=== PATIENT | male | born 1965 | race Caucasian/White ===

== ENCOUNTER → 2020-09-05 17:55 | Outpatient (CLI) | payer BC, SELFPAY ==
[2020-09-05 18:28] LABS: Basophils # 0.1 K/mm3 (0-0.2); Basophils % 0.7 % (0.1-2.0); Eosinophils # 0.3 K/mm3 (0.0-0.4); Eosinophils % 2.9 % (0.1-12.0); Hematocrit 49.4 % (42.0-52.0); Hemoglobin 16.4 g/dL (14.1-18.0); Lymphocytes # 4.4 K/mm3 (0.7-4.5); Lymphocytes % 37.1 % (10-50); Mean Corpuscular HGB Conc 33.2 g/dL (31.8-35.4); Mean Corpuscular Hemoglobin 31.4 pg (27.0-31.2); Mean Corpuscular Volume 94.6 fl (80-94); Mean Platelet Volume 8.4 fl (7.4-10.4); Monocytes # 0.6 K/mm3 (0.1-1.0); Monocytes % 5.4 % (1.7-9.3); Neutrophils # 6.4 K/mm3 (1.8-7.8); Neutrophils % 53.8 % (37.0-80.0); Platelet Count 300 K/mm3 (142-424); Red Blood Count 5.22 M/mm3 (4.60-6.20); Red Cell Distribution Width 13.7 % (11.5-17.5); White Blood Count 11.8 K/mm3 (4.8-10.8)
[2020-09-05 18:46] LABS: Alanine Aminotransferase 7 U/L (12-78); Albumin Level 4.7 g/dl (3.5-5.0); Albumin/Globulin Ratio 1.6 (1.1-1.8); Alkaline Phosphatase 99 U/L (38-126); Anion Gap 13.4 mEq/L (5-15); Aspartate Amino Transferase 34 U/L (17-59); Bilirubin,Total 0.4 mg/dl (0.2-1.3); Blood Urea Nitrogen 18 mg/dl (9-20); Calcium 10.1 mg/dl (8.4-10.2); Carbon Dioxide 31 mmol/L (22.0-30.0); Chloride 103 mmol/L (98-107); Chol/HDL Ratio 6.5 (1-3.5); Cholesterol 213 mg/dl (140-200); Estimated Glomerular Filt Rate 63 ml/min (>60); GFR (African American) 77 ML/MIN (>60); Glucose 92 mg/dl (74-100); HDL Cholesterol 33 mg/dl (40-60); Potassium 4.4 mmoL/L (3.5-5.1); Sodium 143 mmol/L (136-145); Total Protein,Serum 7.7 g/dl (6.3-8.2); Triglycerides 270 mg/dl (30-150); VLDL Cholesterol 54 mg/dL (0-40)
[2020-09-05 18:53] LABS: Coronavirus 19 IgG Antibody Negative (Negative); Coronavirus 19 IgM Antibody Negative (Negative)
[2020-09-05 18:56] LABS: Direct LDL Cholesterol 139.75 mg/dL (100-129)
[2020-09-05 19:16] LABS: Prostate Specific Ag Screen 0.7 ng/ml (0.0-4.0)
== END ==
PROVIDERS: Visit Provider Family Medicine
DX: E78.5 Hyperlipidemia, unspecified (principal); I10 Essential (primary) hypertension; R04.0 Epistaxis; R09.81 Nasal congestion; Z01.84 Encounter for antibody response examination; Z12.5 Encounter for screening for malignant neoplasm of prostate
CPT/HCPCS: 80053; 80061; 85025; 86328; G0103

== ENCOUNTER → 2021-09-04 14:55 | Outpatient (CLI) | payer BC, SELFPAY ==
[2021-09-04 15:27] LABS: Basophils # 0.1 K/mm3 (0-0.2); Basophils % 1.2 % (0.1-2.0); Eosinophils # 0.2 K/mm3 (0.0-0.4); Eosinophils % 2.7 % (0.1-12.0); Hemoglobin 16.2 g/dL (14.1-18.0); Lymphocytes # 3.3 K/mm3 (0.7-4.5); Mean Corpuscular Hemoglobin 31.7 pg (27.0-31.2); Mean Corpuscular Volume 96.1 fl (80-94); Mean Platelet Volume 9.9 fl (7.4-10.4); Monocytes # 0.4 K/mm3 (0.1-1.0); Monocytes % 4.7 % (1.7-9.3); Neutrophils # 4.6 K/mm3 (1.8-7.8); Neutrophils % 53.5 % (37.0-80.0); Platelet Count 323 K/mm3 (142-424); Red Cell Distribution Width 13.6 % (11.5-17.5); White Blood Count 8.6 K/mm3 (4.8-10.8)
[2021-09-04 18:09] LABS: Albumin Level 4.5 g/dl (3.5-5.0); Albumin/Globulin Ratio 1.6 (1.1-1.8); Alkaline Phosphatase 92 U/L (38-126); Anion Gap 11.1 mEq/L (5-15); Aspartate Amino Transferase 31 U/L (17-59); Bilirubin,Total 0.5 mg/dl (0.2-1.3); Blood Urea Nitrogen 16 mg/dl (9-20); Calcium 9.9 mg/dl (8.4-10.2); Carbon Dioxide 29 mmol/L (22.0-30.0); Chloride 102 mmol/L (98-107); Chol/HDL Ratio 6.7 (1-3.5); Cholesterol 188 mg/dl (140-200); Estimated Glomerular Filt Rate 88 ml/min (>60); GFR (African American) 106 ML/MIN (>60); Globulin 2.9 g/dL (1.3-3.2); Glucose 88 mg/dl (74-100); HDL Cholesterol 28 mg/dl (40-60); Potassium 5.1 mmoL/L (3.5-5.1); Sodium 137 mmol/L (136-145); Total Protein,Serum 7.4 g/dl (6.3-8.2); Triglycerides 187 mg/dl (30-150); VLDL Cholesterol 37 mg/dL (0-40)
[2021-09-04 18:20] LABS: Direct LDL Cholesterol 122.79 mg/dL (100-129)
[2021-09-04 18:22] LABS: Alanine Aminotransferase < 4 U/L (12-78)
[2021-09-04 18:39] LABS: Thyroid Stimulating Hormone 3.78 uIU/mL (0.465-4.68)
== END ==
PROVIDERS: Visit Provider Family Medicine
DX: Z00.00 Encounter for general adult medical examination without abnormal findings (principal); Z79.899 Other long term (current) drug therapy
CPT/HCPCS: 80053; 80061; 84443; 85025

== ENCOUNTER → 2022-08-03 09:29 | Outpatient (CLI) | payer OTHER, BC, SELFPAY ==
--- NOTE | 2022-08-03 10:03 | XR_ITS ---
FINAL REPORT CLINICAL HISTORY: LBP x yrs, NKT. Worsened within last 4-6 mos. C/o numbness/tingling down Rt arm & Rt leg FINDINGS: CERVICAL SPINE Five views demonstrate no acute fracture. There are mild degenerative changes with small osteophytes. There is no malalignment. IMPRESSION: Mild degenerative changes. LUMBAR SPINE Three views demonstrate no acute fracture. There are mild and moderate degenerative changes with osteophytes. There is mild anterolisthesis of L5 on S1 measuring approximately 4 mm. 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 Mild vascular calcification is identified. IMPRESSION: Mild and moderate degenerative changes as above. Reviewed, Interpreted and Dictated by Chente Son III, MD Transcribed by Marsha Haywood Authenticated and [facility]
== END ==
PROVIDERS: PCP Family Medicine
DX: M50.30 Other cervical disc degeneration, unspecified cervical region (principal); M51.37 Other intervertebral disc degeneration, lumbosacral region
CPT/HCPCS: 72084

== ENCOUNTER → 2022-08-25 09:39 | Outpatient (CLI) | payer OTHER, BC, SELFPAY ==
--- NOTE | 2022-08-25 09:47 | XR_ITS ---
FINAL REPORT CLINICAL HISTORY: ARTHRITIS, PAIN FINDINGS: 2 views of the right hip and an AP pelvis were obtained. There is no acute fracture or dislocation. There are mild degenerative changes of the right hip and the SI joints. There are no soft tissue abnormalities. IMPRESSION: Mild degenerative change. Reviewed, Interpreted and Dictated by Chente Son III, MD Transcribed by Mark Keenan Authenticated and [facility]
--- NOTE | 2022-08-25 09:47 | XR_ITS ---
FINAL REPORT CLINICAL HISTORY: ARTHRITIS, PAIN FINDINGS: Three views of the right knee reveal no evidence of fracture or dislocation. There is a 20 mm probable osteochondroma arising from the proximal medial fibula. There are mild degenerative changes. There is no evidence of joint effusion. No localized soft tissue abnormality is identified. IMPRESSION: Mild degenerative change. Probable osteochondroma arising from the proximal-medial fibula. Reviewed, Interpreted and Dictated by Chente Son III, MD Transcribed by Mark Keenan Authenticated and [facility]
--- NOTE | 2022-08-25 09:47 | XR_ITS ---
FINAL REPORT CLINICAL HISTORY: ARTHRITIS, PAIN FINDINGS: Three views were obtained. There is no acute fracture. There is approximately 3 mm of anterolisthesis of L5 on S1. There are mild and moderate degenerative changes. Facet arthropathy is seen in the lower lumbar spine. IMPRESSION: Mild and moderate degenerative changes. Reviewed, Interpreted and Dictated by Chente Son III, MD Transcribed by Mark Keenan Authenticated and [facility]
== END ==
PROVIDERS: PCP Family Medicine; Visit Provider Chiropractor
DX: M13.80 Other specified arthritis, unspecified site (principal); M54.50 Low back pain, unspecified; M25.551 Pain in right hip; M25.561 Pain in right knee
CPT/HCPCS: 72100; 73502; 73562

== ENCOUNTER → 2022-09-20 09:30 | Outpatient (CLI) | payer BC, OTHER, SELFPAY ==
[2022-09-20 13:46] LABS: Basophils # 0.1 K/mm3 (0-0.2); Eosinophils # 0.2 K/mm3 (0.0-0.4); Eosinophils % 1.6 % (0.1-12.0); Hematocrit 48.9 % (42.0-52.0); Hemoglobin 15.9 g/dL (14.1-18.0); Lymphocytes # 3.4 K/mm3 (0.7-4.5); Lymphocytes % 29.7 % (10-50); Mean Corpuscular HGB Conc 32.6 g/dL (31.8-35.4); Mean Corpuscular Hemoglobin 31.3 pg (27.0-31.2); Mean Corpuscular Volume 95.9 fl (80-94); Mean Platelet Volume 9.3 fl (7.4-10.4); Monocytes # 0.5 K/mm3 (0.1-1.0); Monocytes % 4.1 % (1.7-9.3); Neutrophils # 7.3 K/mm3 (1.8-7.8); Neutrophils % 63.6 % (37.0-80.0); Platelet Count 359 K/mm3 (142-424); Red Cell Distribution Width 13.7 % (11.5-17.5); White Blood Count 11.4 K/mm3 (4.8-10.8)
[2022-09-20 13:53] LABS: Alanine Aminotransferase 5 U/L (12-78); Albumin Level 4.5 g/dl (3.5-5.0); Albumin/Globulin Ratio 1.5 (1.1-1.8); Alkaline Phosphatase 125 U/L (38-126); Aspartate Amino Transferase 30 U/L (17-59); Bilirubin,Total 0.4 mg/dl (0.2-1.3); Blood Urea Nitrogen 20 mg/dl (9-20); Calcium 10.2 mg/dl (8.4-10.2); Carbon Dioxide 29 mmol/L (22.0-30.0); Chloride 96 mmol/L (98-107); Chol/HDL Ratio 6.4 (1-3.5); Cholesterol 179 mg/dl (140-200); Estimated Glomerular Filt Rate 63 ml/min (>60); GFR (African American) 76 ML/MIN (>60); Glucose 98 mg/dl (74-100); HDL Cholesterol 28 mg/dl (40-60); Sodium 141 mmol/L (136-145); Total Protein,Serum 7.5 g/dl (6.3-8.2); Triglycerides 217 mg/dl (30-150); VLDL Cholesterol 43 mg/dL (0-40)
[2022-09-20 14:05] LABS: Direct LDL Cholesterol 103.14 mg/dL (100-129)
[2022-09-20 14:13] LABS: 25-OH Vitamin D, Total 27.9 ng/mL (30-100)
[2022-09-20 14:22] LABS: Hemoglobin A1C 5.8 % (4.0-6.0)
[2022-09-20 14:26] LABS: Thyroid Stimulating Hormone 3.22 uIU/mL (0.465-4.68)
== END ==
PROVIDERS: PCP Student in an Organized Health Care Education/Training Program; Visit Provider Student in an Organized Health Care Education/Training Program
DX: I10 Essential (primary) hypertension (principal); R53.83 Other fatigue; E55.9 Vitamin D deficiency, unspecified; Z12.5 Encounter for screening for malignant neoplasm of prostate; Z79.899 Other long term (current) drug therapy
CPT/HCPCS: 80053; 80061; 82306; 83036; 84443; 85025; G0103